=== PATIENT | male | born 1975 | race Caucasian/White ===

== ENCOUNTER 2020-07-28 16:50 | Emergency (ER) | payer OTHER ==
[2020-07-28 17:08] VITALS: TEMP 98.6
[2020-07-28] MEDS ORDERED: DIPH,PERTUS(ACELL)TETVAC-LF 0.5 ML VIAL IM ONE (17:41)
[2020-07-28] MEDS ORDERED: GELATIN SPONGE,ABSORB (SMALL) 1 EACH SPONGE TOPICAL STA (17:41)
--- NOTE | 2020-07-28 18:00 | ED ---
Wound/Laceration HPI - General Chief Complaint: Wound/Laceration Stated Complaint: R Finger Lac Time Seen by Provider: 07/28/20 17:30 Source: patient Mode of arrival: ambulatory Limitations: no limitations - History of Present Illness Initial Comments: 44-year-old male patient presents to the emergency department today for evaluation of injury to the right thumb. He states he was slicing vegetables with a mandolin when he caught his thumb and sliced off the skin. Patient states this occurred around 10:00 this morning. They did bring skin flap in a sandwich bag, had it refrigerated. They're unable to get the bleeding under control so they presented here for further evaluation. Denies any other injuries. Please his last tetanus vaccine was run 10 years ago. Denies taking anything for pain. Denies use of anticoagulants or antiplatelet medications. - Related Data Previous Rx's Medication Instructions Recorded Cephalexin [Keflex] 500 mg PO Q6H #28 cap 07/28/20 Allergies Allergy/AdvReac Type Severity Reaction Status Date / Time codeine Allergy Unknown Verified 07/28/20 17:08 Review of Systems ROS Statement: Those systems with pertinent positive or pertinent negative responses have been documented in the HPI. ROS Other: All systems not noted in ROS Statement are negative. Past Medical History Past Medical History: Hypertension History of Any Multi-Drug Resistant Organisms: None Reported Additional Past Surgical History / Comment(s): inguinal hernia Past Psychological History: No Psychological Hx Reported Smoking Status: Current every day smoker Past Alcohol Use History: Occasional Past Drug Use History: Marijuana General Exam Limitations: no limitations General appearance: alert, in no apparent distress, other (Physical well- developed, well-nourished adult male patient in no acute distress. Vital signs upon presentation are temperature 98.6F, pulse 77, respirations 18, blood pressure 149/90, pulse ox 96% on room air.) ENT exam: Present: normal exam, normal oropharynx, mucous membranes moist Respiratory exam: Present: normal lung sounds bilaterally. Absent: respiratory distress, wheezes, rales, rhonchi, stridor Cardiovascular Exam: Present: regular rate, normal rhythm, normal heart sounds. Absent: systolic murmur, diastolic murmur, rubs, gallop, clicks Extremities exam: Present: full ROM, normal capillary refill, other (There is skin avulsion noted to the lateral aspect of the right right thumb. No active bleeding noted. Full range of motion intact. Nail bed is noninvolved. Skin is otherwise pink, warm, dry. Cap refill less than 3 seconds. Radial pulses 2+.). Absent: normal inspection, tenderness, pedal edema, joint swelling, calf tenderness Neurological exam: Present: alert, oriented X3, CN II-XII intact Psychiatric exam: Present: normal affect, normal mood Skin exam: Present: warm, dry, intact, normal color. Absent: rash Course Vital Signs 07/28/20 07/28/20 17:04 18:21 Temperature 98.6 F Pulse Rate 77 84 Respiratory 18 20 Rate Blood Pressure 149/90 142/87 O2 Sat by Pulse 96 99 Oximetry Medical Decision Making - Medical Decision Making 44-year-old male patient presents to the emergency department today for evaluation of injury to the right thumb. Physical examination revealed skin avulsion injury measuring approximately 2 cm to the right lateral thumb. Nail is not involved. Wound was cleansed, Gelfoam applied, pressure held. Dressing was applied. He was given Adacel injection. He'll be discharged vomit this primary care physician for recheck in 1-2 days. We discussed wound care and signs or symptoms of infection. Return parameters were discussed in detail. He verbalizes understanding and agrees this plan. My attending is Dr. Danielle. Disposition Clinical Impression: Avulsion of skin of right thumb Disposition: HOME SELF-CARE Condition: Good Instructions (If sedation given, give patient instructions): Skin Avulsion (ED) Additional Instructions: Keep wound clean and dry. Cleanse twice daily with warm water and antibacterial soap. Leave the Gelfoam dressing in place for 2-3 days unless it falls off. Follow-up with the primary care physician for recheck in 1-2 days. Return to the emergency department for any new, worsening, or concerning symptoms. Prescriptions: Cephalexin [Keflex] 500 mg PO Q6H #28 cap Is patient prescribed a controlled substance at d/c from ED?: No Referrals: None,Stated [Primary Care Provider] - 1-2 days Time of Disposition: 18:00
[2020-07-28 18:22] VITALS: BP 142/87; PULSE 84; RESP 20
== END 2020-07-28 18:22 | disposition home or self-care (01) ==
LOC: EC 16:50
DX: S61.011A Laceration without foreign body of right thumb without damage to nail, initial encounter (principal); Z23 Encounter for immunization; F17.200 Nicotine dependence, unspecified, uncomplicated; Z88.5 Allergy status to narcotic agent; W27.8XXA Contact with other nonpowered hand tool, initial encounter; Y93.G1 Activity, food preparation and clean up
CPT/HCPCS: 90471; 90715; 99282

== ENCOUNTER → 2023-09-23 | Outpatient (CLI) | payer MEDICAID ==
--- NOTE | 2023-09-23 15:03 | P.SLEEP ---
History of Present Illness DATE: 09/23/2023 CONSULTATION/NEW PATIENT EVALUATION HISTORY OF PRESENT ILLNESS/SLEEP-WAKE EVALUATION: 48-year-old gentleman had be en evaluated in the sleep center for possible obstructive sleep apnea hypopnea syndrome. SLEEP SCHEDULE: Usually sleep schedule from 10 PM to 6 AM 7 days a week. FALLING ASLEEP: No problems with falling asleep. DURING SLEEP: Patient usually sleeps on the side position with snoring, episodes of choking, heartburn and awakenings from sleep up to 3 times with nocturia. No history of hypnogogical hallucinations, sleep paralysis, or cataplexy. DURING THE DAY/WAKE STATE: In the morning patient wake up tired, has difficulties to pay attention, falling asleep during the day. Positive history of problems with memory, concentration, irritability, episodes of depression and anxiety.. [place] sleepiness scale is 7. Patient take nap at noon time. PAST MEDICAL HISTORY: Episodes of increasing blood pressure. PAST SURGICAL HISTORY: Hernia repair. MEDICATIONS: None. SOCIAL HISTORY: Please see below. FAMILY HISTORY: Stroke, hypertension, arthritis. REVIEW OF SYSTEMS: Snoring, multiple awakenings from sleep, sleepiness during the day. No fevers. No double vision. No recent chest pain. No shortness of breath. No abdominal pain. No bleeding episodes. No blood in urine. No seizure episodes. PHYSICAL EXAMINATION: GENERAL: A pleasant patient without any distress. VITAL SIGNS: Please see below, weight 246.4 pounds, BMI 35.9. HEENT: PERRLA, EOMI. Evaluation of oropharynx showed tongue protrudes midline, low position of soft palate Mallampati 4. NECK: Supple. No JVD. Thyroid is not palpable. 18.5 inches in circumference. LUNGS: Clear to percussion and to auscultation. Good air exchange. No wheezing or rhonchi. HEART: S1, S2 regular. No murmurs, gallops or rubs. ABDOMEN: Soft and nontender. Bowel sounds are present. No organomegaly appreciated. EXTREMITIES: No clubbing or cyanosis. DAMPER MAKER: Awake, alert, and oriented x3. Cranial nerves 2 to 7 intact. There is no fasciculation or atrophy noted. No focal deficits observed. ASSESSMENT: 1. Snoring, multiple awakenings from sleep, extremely low position of soft palate Mallampati 4, wide neck 18.5 inches in circumference, sleepiness patient takes nap in the middle of the day. Obstructive sleep apnea hypopnea syndrome. 2. Obesity, BMI 35.9. 3. Hypertension in the office today. 4. Status post hernia repair. PLAN: 1. Polysomnography for evaluation of patient's breathing during sleep. 2. Following plan after reading sleep study. 3. Preferable position during sleep on the side. 4. No driving if patient feels any sleepiness. Patient is aware of civil and criminal liability for unsafe driving. 5. Sleep hygiene with regular sleep time for at least 7.5-8 hours. 6. Watching and losing weight. 7. Monitoring blood pressure, low-sodium diet. Thank you very much for referring this patient for consultation. Sincerely, Ceferino Martin MD, PhD, FAASM. Diplomat of [place] [employer], Sleep Medicine Board by [place] [employer] [place] [employer] Emergency Medical Services Coordinator of [facility] [place] Past Medical History Past Medical History: Hypertension History of Any Multi-Drug Resistant Organisms: None Reported Additional Past Surgical History / Comment(s): inguinal hernia Past Anesthesia/Blood Transfusion Reactions: No Reported Reaction Past Psychological History: No Psychological Hx Reported Smoking Status: Former smoker Past Alcohol Use History: Occasional Past Drug Use History: Marijuana Medications and Allergies Home Medications Medication Instructions Recorded Confirmed Type Cephalexin [Keflex] 500 mg PO Q6H #28 cap 07/28/20 Rx Allergies Allergy/AdvReac Type Severity Reaction Status Date / Time codeine Allergy Unknown Verified 07/28/20 17:08 Physical Exam Vitals: Vital Signs Temp Pulse Resp BP Pulse Ox 09/23/23 14:39 97.9 F 76 16 153/89 94 L Sleep Note - Sleep Data ESS Total: 7 - Sleep Note Sleep Note: Temperature: 97.9 F Pulse Rate: 76 Respiratory Rate: 16 Blood Pressure: 153/89 SpO2: 94 Height: Weight: BMI: Neck Circumference: 18.5
[2023-09-23 15:11] VITALS: BP 153/89; PULSE 76; RESP 16; TEMP 97.9
== END ==
LOC: 3 N SLEEP 14:15
PROVIDERS: ATTEND Internal Medicine
DX: G47.33 Obstructive sleep apnea (adult) (pediatric) (principal); E66.9 Obesity, unspecified; G47.10 Hypersomnia, unspecified; I10 Essential (primary) hypertension; Z98.890 Other specified postprocedural states; Z68.35 Body mass index [BMI] 35.0-35.9, adult; Z88.5 Allergy status to narcotic agent
CPT/HCPCS: 99211

== ENCOUNTER 2023-11-03 19:38 | Outpatient (CLI) | payer MEDICAID ==
--- NOTE | 2023-11-04 11:03 | P.PCN ---
Description of Procedure: POLYSOMNOGRAPHY REPORT PROCEDURE(S)/DATE(S): Polysomnography 11/03/2023 CLINICAL: Patient has been seen in the sleep center for evaluation of obstructive sleep apnea-hypopnea syndrome. Please see my consultation. Sleep study has been done for evaluation of patient breathing during the sleep. PROCEDURE: The standard montage for clinical polysomnography included the electroencephalogram, the electrooculogram, the mentalis surface electromyography and Lead II cardiography. The respiratory battery consisted of measurements of nasal/buccal air flow, pressure transducer measurements from nose, thoracic and/or abdominal effort and intercostal surface electromyography. Video monitoring has been done to check for any parasomnia events. Nocturnal oxyhemoglobin saturations were obtained by finger oximetry. Step-russell titration with positive airway pressure was utilized to control the respiratory events, if necessary. RESULTS: During the diagnostic sleep study sleep efficiency was normal 93.8%. Latency to sleep onset was in short range 7.0 min. Sleep architecture showed st age NI was normal 5.7%, Delta sleep was absent 0%, REM sleep was slightly decreased to 17.7%. Respiratory channel showed 44 obstructive apneas, 0 mixed apneas, 0 central apneas, 98 hypopneas with lowest oxygen level 77%. Total apnea hypopnea index was 23.0. Heart rate was in the range between 60 and 67, average 63. EMG showed 0.8 periodic limb movements per hour . IMPRESSIONS: 1. Moderate obstructive sleep apnea hypopnea syndrome. 2. No significant periodic limb movements have been documented. Please see other impressions from consultation PLAN: 1. The patient will have PAP titration for correction of respiratory abnormalities during the sleep. 2. Losing weight program. 3. Sleep hygiene with regular time in bed for at least 7-1/2 hours. 4. No driving if feeling sleepiness. Thank you very much for allowing me to participate in the management of your patient. Sincerely, Ceferino Martin MD, PhD, FAASM. Diplomat of [place] [employer], Sleep Medicine Board by [place] [employer] Sample Maker of [facility] [place] cc:Leonel Joe Jr, DO
== END 2023-11-04 05:04 | disposition home or self-care (01) ==
LOC: 3 N SLEEP 19:38
PROVIDERS: ATTEND Internal Medicine
DX: G47.33 Obstructive sleep apnea (adult) (pediatric) (principal); Z88.5 Allergy status to narcotic agent
CPT/HCPCS: 95810

== ENCOUNTER 2023-11-24 19:20 | Outpatient (CLI) | payer MEDICAID ==
--- NOTE | 2023-11-25 10:35 | P.PCN ---
Description of Procedure: CLINICAL: Titration with positive air pressure has been done for correction of respiratory abnormalities during sleep. DESCRIPTION OF PROCEDURE: The standard montage for clinical polysomnography included the electroencephalogram, the electrocardiogram, the mentalis surface electromyography and Lead II cardiography. The respiratory battery consisted of measurements of nasal /buccal air flow, pressure transducer measurements from the nose, thoracic and /or abdominal effort and intercostal surface electromyography. Video monitoring has been done to check for any parasomnia events. Nocturnal oxyhemoglobin saturations were obtained by finger oximetry. Step-russell titration with positive airway pressure was utilized to control respiratory events. Raw data of sleep recording has been reviewed and is adequate. RESULTS: Sleep efficiency was normal 90.0%. Latency to sleep onset was normal 2011.5 minutes.]. Sleep architecture showed stage N1 was short 3.3%, Delta sleep was absent 0%, REM sleep was borderline 19.6%. Heart rate was minimum 59 BPM, maximum 64 BPM, average 61 BPM. EMG showed 0 periodic limb movements per hour with 0 micriarousals per hour. PAP titration have been done with CPAP up to the pressure 13 cm H2O. The best results were at the pressure 12 cm H2O. Apnea hypopnea index reduced to 1.4. IMPRESSION: 1. Obstructive sleep apnea hypopnea syndrome mostly on with PAP treatment. 2. No significant periodic limb movements have been documented. Please see other impressions from consultation. PLAN: 1. The patient will have treatment with positive air pressure equipment with the level of pressure AutoPAP 5-13 cm H2O and should use it every night for the whole night. 2. Watching and losing weight. 3. Sleep hygiene with regular time in bed for at least 8 hours. 4. No driving if feeling any sleepiness. 5. I will see the patient for follow up visit to explain the results of the test, recommendations, check compliance with treatment and make any necessary adjustment related to mask fitting, pressure and humidification. Thank you very much for allowing me to participate in the management of your patient. Sincerely, Ceferino Martin MD, PhD, FAASM Diplomat of [place] [employer] Sleep Medicine Board of [place] [employer] Medicine Data Entry Analyst of [facility] [place]
== END 2023-11-25 05:36 | disposition home or self-care (01) ==
LOC: 3 N SLEEP 19:20
PROVIDERS: ATTEND Internal Medicine
DX: G47.33 Obstructive sleep apnea (adult) (pediatric) (principal); Z88.5 Allergy status to narcotic agent
CPT/HCPCS: 95811

== ENCOUNTER → 2024-02-23 | Outpatient (CLI) | payer MEDICAID ==
[2024-02-23 13:21] VITALS: BP 137/77; PULSE 85; RESP 18; TEMP 98
--- NOTE | 2024-02-23 13:48 | P.PROGSL ---
Subjective DATE: [] FOLLOW UP VISIT. Patient with obstructive sleep apnea hypopnea syndrome return to sleep center for follow-up visit. Recently patient had sleep study which documented obstructive sleep apnea hypopnea syndrome. Patient was initiated on PAP therapy and today is first visit after treatment was started. I explained results of sleep studies to the patient in details. Patient was able to use PAP equipment every night for the whole night. Patient feels better after starting to use CPAP equipment, he sleeps better and feels better in the morning after awakening. The patient does not have significant problems with the mask, PAP pressure and humidification. [place] sleepiness scale is 4, which is normal. I checked information from PAP unit. PAP unit pressure 5-14, average 8.7 cm H2O. Usage is 97% and 83% for more then 4 hours, average 7.5 hours per night. Leak is 3.8 l/m, which is in acceptable range. Apnea Hypopnea Index is 2.4, which is normal. MEDICATIONS: Please see below During physical exam: GENERAL: A pleasant patient without any distress. VITAL SIGNS: Please see below, weight 240.2 pounds. HEENT: PERRLA, EOMI.low position of soft palate, Mallapati 4 . NECK: Supple. No JVD. LUNGS: Clear to percussion and to auscultation. Good air exchange. No wheezing or rhonchi. HEART: S1, S2 regular. ABDOMEN: Soft and nontender.[] EXTREMITIES: No clubbing or cyanosis. GLOBAL TRANSPORTATION MANAGER: Awake, alert, and oriented x3. No focal deficit. Impressions: 1. Obstructive sleep apnea-hypopnea syndrome. Patient demonstrated great co mpliance with treatment, benefiting from treatment. 2. Obesity. 3. Hypertension in the office. 4. Status post hernia repair. Plan: 1. Continue using PAP equipment every night for the whole night. 2. To change air filter at least 1-2 times per month. 3. PAP unit should stay lower then position of the head. 4. Advised patient to remove all remaining water from humidifier canister daily and make it dry after each usage. Refill canister with fresh distilled water before each usage. 5. Sleep hygiene with regular time in bed for at least 8 hours. 6. Precautions related to driving. No driving if feel any sleepiness. 7. I will maintain prescription for PAP supplies including mask, tube, filters. 8. Follow up visit in 8 months or earlier if patient has any problems. 9. Watching weight. Thank you very much for allowing me to participate in the management of your patient. Ceferino Martin MD, PhD, FAASM. Diplomat of [place] [employer], Sleep Medicine Board by [place] [employer] Operator of [facility] [place] cc: Leonel Joe DO Objective - Vital Signs Vital Signs: Vital Signs Temp 98.0 F 02/23/24 13:21 Pulse 85 02/23/24 13:21 Resp 18 02/23/24 13:21 BP 137/77 02/23/24 13:21 Pulse Ox 96 02/23/24 13:21 FiO2 Home Medications: Home Medications Medication Instructions Recorded Confirmed Type Cephalexin [Keflex] 500 mg PO Q6H #28 cap 07/28/20 Rx
== END | disposition home or self-care (01) ==
LOC: 3 N SLEEP 13:06
PROVIDERS: ATTEND Internal Medicine
DX: G47.33 Obstructive sleep apnea (adult) (pediatric)
CPT/HCPCS: 99212

== ENCOUNTER → 2024-07-20 | Outpatient (CLI) | payer MEDICAID ==
[2024-07-20 15:01] LABS: Basophils # (A) 0.05 X 10*3/uL (0.00-0.10); Basophils % (A) 0.6 %; Eosinophils % (A) 1.2 %; HCT 44.9 % (39.6-50.0); HGB 15.2 g/dL (13.0-17.0); Lymphocytes % (A) 35.7 %; MCH 28.9 pg (27.0-32.0); MCHC 33.9 g/dL (32.0-37.0); MCV 85.4 FL (80.0-97.0); Mean Platelet Volume 9.1 FL (9.5-12.2); Monocytes # (A) 0.63 X 10*3/uL (0.20-1.00); Monocytes % (A) 7.8 %; NRBC Per 100 WBC 0 X 10*3/uL (0.00-0.01); Neutrophils % (A) 54.2 %; Platelet Count 228 X 10*3/uL (140-440); RBC 5.26 X 10*6/uL (4.40-5.60); RDW 12.9 % (11.5-14.5); WBC 8.12 X 10*3/uL (4.50-10.00)
[2024-07-20 15:12] LABS: Albumin 4.3 g/dL (3.8-4.9); BUN/Creat Ratio 13.86 Ratio (12.00-20.00); Blood Urea Nitrogen 9.7 mg/dL (9.0-27.0); Calcium 9.1 mg/dL (8.7-10.3); Carbon Dioxide 24.9 mmol/L (21.6-31.8); Chloride 107 mmol/L (96-109); Chol/HDL Ratio 3.44 Ratio; Globulin 2.4 g/dL (1.6-3.3); Glucose 96 mg/dL (70-110); LDL Cholesterol,Calculated 66.2 mg/dL (0.0-131.0); Potassium 4.5 mmol/L (3.5-5.5); Sodium 143 mmol/L (135-145); Total Protein 6.7 g/dL (6.2-8.2)
[2024-07-20 15:13] LABS: ALT 52 U/L (10-49); AST 32 U/L (14-35); Albumin/Globulin Ratio 1.79 Ratio (1.60-3.17); Alkaline Phosphatase 66 U/L (41-126); Prostate Specific Antigen 1.51 ng/mL (0.000-2.500); Total Bilirubin 0.3 mg/dL (0.3-1.2)
== END | disposition home or self-care (01) ==
LOC: LABWHC1 07:57
PROVIDERS: ATTEND Family Medicine
DX: Z00.00 Encounter for general adult medical examination without abnormal findings (principal); Z12.5 Encounter for screening for malignant neoplasm of prostate; E78.1 Pure hyperglyceridemia; I10 Essential (primary) hypertension; Z87.891 Personal history of nicotine dependence
CPT/HCPCS: 36415; 80053; 80061; 84153; 85025

== ENCOUNTER → 2024-11-02 | Outpatient (CLI) | payer MEDICAID ==
[2024-11-02 16:42] VITALS: BP 146/82; PULSE 72; RESP 16; TEMP 98.1
--- NOTE | 2024-11-02 17:30 | P.PROGSL ---
Subjective DATE: 11/02/2024 FOLLOW UP VISIT. Patient with obstructive sleep apnea hypopnea syndrome return to sleep center for follow-up visit. Information from previous visit have been reviewed. Patient is using PAP equipment every night for the whole night, getting PAP supplies in time. The patient does not have significant problems with the mask, PAP unit and humidification. [place] sleepiness scale is 4. I checked information from PAP unit. PAP unit pressure 5-14, average 9.3 cm H2O. Usage is 100% for more then 4 hours, average 7.1 hours per night. Leak is 6 l/m, which is in acceptable range. Apnea Hypopnea Index is 2.3, which is normal. MEDICATIONS have been reviewed, please see below. During physical exam: GENERAL: A pleasant patient without any distress. VITAL SIGNS: Please see below, weight is 241 lbs. HEENT: PERRLA, EOMI.low position of soft palate, Mallapati 4 . NECK: Supple. No JVD. LUNGS: Clear to percussion and to auscultation. Good air exchange. No wheezing or rhonchi. HEART: S1, S2 regular. ABDOMEN: Soft and nontender.[] EXTREMITIES: No clubbing or cyanosis. JIG AND FIXTURE BUILDER APPRENTICE: Awake, alert, and oriented x3. No focal deficit. Impressions: 1. Obstructive sleep apnea-hypopnea syndrome. Patient demonstrated great compliance with treatment, benefiting from treatment. 2. Mild obesity, BMI 35.8, weight is about the same as during previous visit. 3. Status post hernia repair. Plan: 1. Continue using PAP equipment every night for the whole night. 2. Sleep hygiene with regular time in bed for at least 7.5-8 hours 3. PAP unit should stay lower then position of the head. 4. Advised patient to remove all remaining water from humidifier canister daily and make it dry after each usage. Refill canister with fresh distilled water before each usage. 5. Watching and losing weight. 6. Precautions related to driving. No driving if feel any sleepiness. 7. I will maintain prescription for PAP supplies including mask, tube, filters. 8. Follow up visit in 8 months or earlier if patient has any problems. Thank you very much for allowing me to participate in the management of your patient. Ceferino Martin MD, PhD, FAASM. Diplomat of [place] [employer], Sleep Medicine Board by [place] [employer] Science Interpreter of [facility] [place] Objective - Vital Signs Vital Signs: Vital Signs Temp 98.1 F 11/02/24 16:42 Pulse 72 11/02/24 16:42 Resp 16 11/02/24 16:42 BP 146/82 11/02/24 16:42 Pulse Ox 97 11/02/24 16:42 FiO2 Intake & Output 11/01/24 11/02/24 11/02/24 18:59 06:59 18:59 Weight 109.316 kg Home Medications: Home Medications Medication Instructions Recorded Confirmed Type Cephalexin [Keflex] 500 mg PO Q6H #28 cap 07/28/20 Rx Losartan [Cozaar] 25 mg PO DAILY 11/02/24 11/02/24 History
== END ==
LOC: 3 N SLEEP 16:04
PROVIDERS: ATTEND Internal Medicine
DX: G47.33 Obstructive sleep apnea (adult) (pediatric) (principal); E66.9 Obesity, unspecified; Z68.35 Body mass index [BMI] 35.0-35.9, adult; Z99.89 Dependence on other enabling machines and devices; Z98.890 Other specified postprocedural states; Z88.5 Allergy status to narcotic agent
CPT/HCPCS: 99212